=== PATIENT | male | born 1975 | race Hispanic/Latino ===

== ENCOUNTER 2019-10-29 00:22 | Emergency (ER) | payer OTHER, SELFPAY ==
[2019-10-29] MEDS ORDERED: predniSONE 20 MG TAB ONE (00:45)
[2019-10-29] MEDS ORDERED: Adacel (T-DAP) 0.5 ML SYRINGE ONE (00:46)
[2019-10-29] MEDS ORDERED: Acetaminophen 500 MG TAB ONE (00:46)
[2019-10-29] MEDS ORDERED: Lidocaine 1% w/Epinephrine 1:100K 20 ML VIAL ONE (00:46)
[2019-10-29] MEDS ORDERED: Sterile Water 0 ML ONE (01:37)
[2019-10-29] MEDS ORDERED: Sterile Water Irrigation 250 ML BOT ONE (01:38)
--- NOTE | 2019-10-29 07:42 | RAD ---
XR Neck Soft Tissue History: Strangled Comparison: None. Findings: No acute fracture of the cervical spine. Moderate narrowing of the C4/C5 and C5/C6 disc spa ryan. Prevertebral soft tissues are normal. Impression: Normal appearance of the paravertebral soft tissues.
== END 2019-10-29 01:25 ==
LOC: MADERS 00:22
DX: S01.511A Laceration without foreign body of lip, initial encounter (principal); R49.0 Dysphonia; Y04.0XXA Assault by unarmed brawl or fight, initial encounter
CPT/HCPCS: 12011; 70360; 90471; 90715; J7512